=== PATIENT | male | born 1970 | race Caucasian/White ===

== ENCOUNTER 2022-06-20 20:44 | Emergency (ER) | payer SELFPAY ==
[2022-06-20] MEDS ORDERED: AMOXicillin 250 MG CAP ONE (21:01)
== END 2022-06-20 21:03 | disposition home or self-care (01) ==
LOC: BURERS 20:44
DX: K04.7 Periapical abscess without sinus (principal); I10 Essential (primary) hypertension; E78.00 Pure hypercholesterolemia, unspecified; Z79.899 Other long term (current) drug therapy
CPT/HCPCS: 99283